=== PATIENT | female | born 1935 | race Caucasian/White ===

== ENCOUNTER 2021-02-28 09:59 | Emergency (ER) | payer MEDICARE ==
[~2021-02-28] VITALS: Ht 152.4 cm; Wt 74.0 kg
[2021-02-28 11:11] LABS: HEMATOCRIT 40.9 % (37.0-47.0); HEMOGLOBIN 13.8 g/dl (12.0-16.0); IMMATURE GRANULOCYTES 0.2 % (0.0-5.0); MEAN CELL VOLUME 90.3 fL CALC (80.0-100.0); MEAN CORPUSCULAR HGB 30.5 pG CALC (26.0-32.0); MEAN CORPUSCULAR HGB CONC 33.7 g/dL CAL (32.0-36.0); NEUT# 9.39 thou/uL (2.00-7.15); RED BLOOD COUNT 4.53 mill/uL (4.20-5.60)
[2021-02-28 11:23] LABS: ALBUMIN 3.8 g/dL (3.2-5.0); BILIRUBIN, TOTAL 1.3 mg/dL (0.0-1.4); CREATININE 1.1 mg/dL (0.5-1.0); POTASSIUM 3.7 mmol/l (3.5-5.1); TOTAL PROTEIN 6.9 g/dL (6.3-8.2)
[2021-02-28 11:25] LABS: C-REACTIVE PROTEIN 6.5 mg/dL (0-0.9)
[2021-02-28 13:57] VITALS: BP 113/57
== END 2021-02-28 14:11 | disposition short-term general hospital (02) ==
LOC: ED 09:59
PROVIDERS: Family Medicine
DX: I21.4 Non-ST elevation (NSTEMI) myocardial infarction (principal); I11.0 Hypertensive heart disease with heart failure; I50.9 Heart failure, unspecified; E11.9 Type 2 diabetes mellitus without complications; J45.909 Unspecified asthma, uncomplicated; Z95.5 Presence of coronary angioplasty implant and graft; Z20.822 Contact with and (suspected) exposure to COVID-19
CPT/HCPCS: J1644

== ENCOUNTER 2021-06-10 14:59 | Emergency (ER) | payer MEDICARE ==
[~2021-06-10] VITALS: Ht 152.4 cm; Wt 74.0 kg
[~2021-06-10 14:59] MED LIST: AMLODIPINE; ASPIRIN81 MG PO; ATORVASTATIN; B12; BUMETANIDE; CLOPIDOGREL; D3; EFFEXOR; ENTRESTO; GABAPENTIN; LEVOTHYROXINE; METOPROL; METOPROLOL; PANTOPRAZOLE; PRESERVISION PO; SPIRONOLACTONE
[2021-06-10 16:35] LABS: HEMATOCRIT 41.7 % (37.0-47.0); HEMOGLOBIN 14.5 g/dl (12.0-16.0); IMMATURE GRANULOCYTES 0.1 % (0.0-5.0); MEAN CELL VOLUME 88.2 fL CALC (80.0-100.0); MEAN CORPUSCULAR HGB 30.7 pG CALC (26.0-32.0); MEAN CORPUSCULAR HGB CONC 34.8 g/dL CAL (32.0-36.0); NEUT# 6.11 thou/uL (2.00-7.15); RED BLOOD COUNT 4.73 mill/uL (4.20-5.60); RED CELL DISTRI WIDTH 12.6 % (11.5-15.5)
[2021-06-10 16:56] LABS: ALBUMIN 4.3 g/dL (3.2-5.0); ALKALINE PHOSPHATASE 102 u/l (38-126); BILIRUBIN, TOTAL 1.1 mg/dL (0.0-1.4); BUN 22 mg/dL (8-23); BUN/CREATININE RATIO 21 (12-20 (CALC)); CHLORIDE 102 mmol/l (95-108); CREATININE 1.1 mg/dL (0.5-1.0); ETHYL ALCOHOL 0 mg/dl (0-30); GFR 47 ML/MIN (>=60 (CALC)); GFR FOR AFR.AMER. 57 ML/MIN (>=60 (CALC)); POTASSIUM 3.9 mmol/l (3.5-5.1); TOTAL PROTEIN 7.3 g/dL (6.3-8.2)
[2021-06-10 17:03] LABS: ANION GAP 15 (6-22 (CALC)); CARBON DIOXIDE 30 mmol/l (22-30); SGOT/AST 50 u/l (9-36); SODIUM 143 mmol/l (137-146)
[2021-06-11] MEDS ORDERED: LEVOTHYROXIN50 MC1 PO (09:09)
[2021-06-11] MEDS ORDERED: JANUVIA50 MG PO (09:10)
[2021-06-11] MEDS ORDERED: VENLAFAXINE150 MG PO (09:10)
[2021-06-11] MEDS ORDERED: ASPIRIN 81 LOW81 MG PO (09:11)
[2021-06-11] MEDS ORDERED: NORVASC10 M1 PO (09:12)
[2021-06-11] MEDS ORDERED: B-12 TR1000 MCG PO (09:13)
[2021-06-11] MEDS ORDERED: VITAMIN D325 MCG (09:13)
[2021-06-11] MEDS ORDERED: LIPITOR40 M1 PO (09:14)
[2021-06-11] MEDS ORDERED: BUMETANIDE1 MG PO (09:14)
[2021-06-11] MEDS ORDERED: CLOPIDOGREL75 MG PO (09:14)
[2021-06-11] MEDS ORDERED: NEURONTIN100 MG PO (09:15)
[2021-06-11] MEDS ORDERED: METOPROL TAR25 MG PO (09:16)
[2021-06-11] MEDS ORDERED: ENTRESTO 24-261 TAB (09:16)
[2021-06-11] MEDS ORDERED: SPIRONOLACT25 MG PO (09:17)
[2021-06-11] MEDS ORDERED: PRESERVISION PO (09:18)
[2021-06-11 10:52] LABS: URINE BILIRUBIN - DIPSTICK NEGATIVE (NEGATIVE); URINE BLOOD DIPSTICK NEGATIVE (NEGATIVE); URINE COLOR YELLOW; URINE GLUCOSE - DIPSTICK NEGATIVE (NEGATIVE); URINE KETONE NEGATIVE (NEGATIVE); URINE LEUK ESTERASE NEGATIVE (NEGATIVE); URINE PH 5.5 (4.5-8.0); URINE PROTEIN - DIPSTICK NEGATIVE (NEG-TRACE); URINE SPECIFIC GRAVITY 1.025; URINE UROBILINOGEN - DIPSTICK 0.2 E.U./dL (0.2)
[2021-06-11 10:53] LABS: URINE NITRITE - DIPSTICK NEGATIVE (Negative)
[2021-06-11 12:13] VITALS: BP 139/64
== END 2021-06-11 12:08 ==
LOC: ED 14:59
PROVIDERS: Family Medicine
DX: R45.851 Suicidal ideations (principal); I10 Essential (primary) hypertension; Z20.822 Contact with and (suspected) exposure to COVID-19

== ENCOUNTER 2023-01-02 12:35 | Emergency (ER) | payer MEDICARE ==
[~2023-01-02] VITALS: Ht 152.4 cm; Wt 69.0 kg
[~2023-01-02 12:35] MED LIST changes: +ASPIRIN 81 LOW81 MG PO; +B-12 TR1000 MCG PO; +BUMETANIDE1 MG PO; +CLOPIDOGREL75 MG PO; +CRESTOR40 MG PO; +ENTRESTO 24-261 TAB; +JANUVIA50 MG PO; +LEVOTHYROXIN50 MC1 PO; +LEVOTHYROXIN75 MC1 PO; +LIPITOR40 M1 PO; +METOPROL TAR25 MG PO; +MUCINEX600 MG BU; +NEURONTIN100 MG PO; +NORVASC10 M1 PO; +PROTONIX40 M2 PO; +SPIRONOLACT25 MG PO; +SUCRALFATE1 GM PO; +TOPROL XL25 MG PO; +VENLAFAXINE150 MG PO; +VITAMIN D325 MCG; +VITAMIN D325 MCG PO; +WELLBUTRIN XL300 MG PO; +[UNRECOGNIZED DRUG - CODE] PO
[2023-01-02 14:36] VITALS: BP 121/62
== END 2023-01-02 14:37 | disposition home or self-care (01) ==
LOC: ED 12:35
DX: M54.2 Cervicalgia (principal); S41.112A Laceration without foreign body of left upper arm, initial encounter; S61.412A Laceration without foreign body of left hand, initial encounter; I10 Essential (primary) hypertension; W18.39XA Other fall on same level, initial encounter

== ENCOUNTER 2024-02-17 09:00 | Emergency (ER) | payer MEDICARE ==
[2024-02-17] VITALS (14 sets, daily range): BP systolic 139–174; BP diastolic 63–115
[~2024-02-17] VITALS: Ht 152.4 cm; Wt 72.5 kg
[2024-02-17] MEDS ORDERED: ONDANSETRON HCl 4 MG/2 ML SDV IV ONE (09:10)
[2024-02-17] MEDS ORDERED: ASPIRIN 81 MG/TAB PO ONE (09:10)
[2024-02-17 09:47] LABS: BASO% 0.3 % (0-3); EOS% 0.8 % (0-8); HEMATOCRIT 44.7 % (37.0-47.0); HEMOGLOBIN 15.6 g/dl (12.0-16.0); IMMATURE GRANULOCYTES 0.1 % (0.0-5.0); LYMPH% 21.7 % (15-41); MEAN CELL VOLUME 88.7 fL CALC (80.0-100.0); MEAN CORPUSCULAR HGB CONC 34.9 g/dL CAL (32.0-36.0); MONO% 11.8 % (2-13); NEUT# 5.74 thou/uL (2.00-7.15); NEUT% 65.3 % (42-76); RED BLOOD COUNT 5.04 mill/uL (4.20-5.60); RED CELL DISTRI WIDTH 12.2 % (11.5-15.5)
[2024-02-17 09:51] LABS: ALBUMIN 4.3 g/dL (3.2-5.0); ALKALINE PHOSPHATASE 91 u/l (38-126); ANION GAP 13 (6-22 (CALC)); BUN 14 mg/dL (8-23); BUN/CREATININE RATIO 10 (12-20 (CALC)); CARBON DIOXIDE 25 mmol/l (22-30); CHLORIDE 109 mmol/l (95-108); CREATININE 1.4 mg/dL (0.5-1.0); ESTIMATED GFR 36 ML/MIN (>=90 (CALC)); LIPASE 116 u/l (23-300); POTASSIUM 4.3 mmol/l (3.5-5.1); SGOT/AST 22 u/l (9-36); SODIUM 142 mmol/l (137-146); TOTAL PROTEIN 7.3 g/dL (6.3-8.2)
[2024-02-17 09:52] LABS: BILIRUBIN, TOTAL 1.8 mg/dL (0.02-1.3)
[2024-02-17] MEDS ORDERED: KETOROLAC TROMETHAMINE 30 MG/ML SDV IV ONE (10:00)
[2024-02-17 10:55] LABS: URINE BILIRUBIN - DIPSTICK Negative (NEGATIVE); URINE BLOOD DIPSTICK Negative (NEGATIVE); URINE COLOR Yellow; URINE GLUCOSE - DIPSTICK Negative (NEGATIVE); URINE KETONE 15 mg/dL (NEGATIVE); URINE LEUK ESTERASE Trace (NEGATIVE); URINE NITRITE - DIPSTICK Positive (Negative); URINE PROTEIN - DIPSTICK Trace mg/dL (NEG-TRACE); URINE SPECIFIC GRAVITY 1.025; URINE UROBILINOGEN - DIPSTICK 0.2 E.U./dL (0.2)
[2024-02-17 11:03] LABS: URINE BACTERIA MANY hpf; URINE SQUAMOUS EPITHELIAL CELL MANY EPI/hpf (0-FEW)
[2024-02-17] MEDS ORDERED: SODIUM CHLORIDE 0.9% 1,000 ML IV ONE (11:05)
[2024-02-17] MEDS ORDERED: cefTRIAXone SODIUM 2 GM in SODIUM CHLORIDE 0.9% 100 ML IV ONE (11:45)
[2024-02-17] MEDS ORDERED: MORPHINE SULFATE 4 MG/ML VIAL IV ONE (12:15)
[2024-02-17] MEDS ORDERED: OMNI-PAC300 MG PO (13:44)
== END 2024-02-17 14:01 | disposition home or self-care (01) ==
LOC: ED 09:00
PROVIDERS: Family Medicine
DX: N39.0 Urinary tract infection, site not specified (principal); B96.20 Unspecified Escherichia coli [E. coli] as the cause of diseases classified elsewhere; I10 Essential (primary) hypertension; E11.9 Type 2 diabetes mellitus without complications; Z95.5 Presence of coronary angioplasty implant and graft
CPT/HCPCS: Q9967